=== PATIENT | female | born 1945 | race Two or more races ===

== ENCOUNTER 2020-02-07 10:45 | Inpatient (IN) | payer MEDICARE, MEDICAID ==
[~2020-02-07] VITALS: Ht 160 cm; Wt 77.8 kg
[2020-02-07] VITALS (12 sets, daily range): BP systolic 110–134; BP diastolic 42–65
[2020-02-07 11:42] LABS: White Blood Cell 4.9 10^3/uL (4.4-10.8)
[2020-02-07 11:43] LABS: Basophils # (auto) 0.1 10 ^3/uL (0-0.2); Eosinophils # (auto) 0.1 10 ^3/uL (0-0.8); Lymphocytes # (auto) 0.9 10 ^3/uL (0.4-5.4); Monocytes # (auto) 0.6 10 ^3/uL (0-1.3); Neutrophils # (auto) 3.2 10 ^3/uL (1.6-8.6); Red Blood Cells 2.42 10^6/uL (4.0-5.20)
[2020-02-07 11:45] LABS: Basophils % (auto) 2.1 % (0.0-2.0); Eosinophils % (auto) 2.2 % (0.0-7.0); Hematocrit 16.8 % (36.0-46.0); Lymphocytes % (auto) 18.4 % (10.0-50.0); Mean Corpuscular Hemoglobin 19.5 pg (28.0-32.0); Mean Corpuscular Hgb Conc. 28.1 g/dL (32.0-36.0); Mean Corpuscular Volume 69.5 fL (80.0-100.0); Monocytes % (auto) 11.3 % (0.0-12.0); Nucleated Red Blood Cells % 0.3 %; Platelet Count (auto) 320 10^3/uL (140-450); Red Cell Distribution Width 19.3 % (11.8-14.3)
[2020-02-07 11:52] LABS: Hemoglobin 4.7 g/dL (12.2-16.2)
[2020-02-07 12:05] LABS: INR 1.18 (0.9-1.15); Partial Thromboplastin Time 22.8 sec (23.64-32.05)
[2020-02-07 12:33] LABS: Chloride 106 mmol/L (98-107); Potassium 3.7 mmol/L (3.5-5.1); Sodium 138 mmol/L (136-145)
[2020-02-07 12:44] LABS: Alanine Aminotransferase 14 U/L (13-56); Albumin 3.4 g/dL (3.4-5.0); Alkaline Phosphatase 74 U/L (45-117); Anion Gap 7 (5-15); Aspartate Aminotransferase 14 U/L (15-37); BUN/Creatinine Ratio 28.7; Bilirubin, Total 0.6 mg/dL (0.2-1.0); Blood Urea Nitrogen 27 mg/dL (7-18); Calcium 8.7 mg/dL (8.5-10.1); Carbon Dioxide 25 mmol/L (21-32); GFR African American 75 mL/min; GFR Non-African American 62 mL/min; Glucose 113 mg/dL (74-106); Total Protein 7.1 g/dL (6.4-8.2)
[2020-02-07] MEDS ORDERED: traMADol HCL 50 MG TAB PO PRN (13:00)
[2020-02-07] MEDS ORDERED: ONDANSETRON HCL 4 MG/2 ML VIAL IV PRN (13:00)
[2020-02-07] MEDS ORDERED: MORPHINE SULF INJ 2 MG/ML SYRINGE 1ML IV PRN (13:00)
[2020-02-07] MEDS ORDERED: SODIUM CHLORIDE 0.9% 1,000 ML IV ONE (13:00)
[2020-02-07] MEDS ORDERED: NITROGLYCERIN 0.4 MG SL TAB SL PRN (13:00)
[2020-02-07 13:25] LABS: % Iron Saturation 37.7 % (15-50)
[2020-02-07 13:35] LABS: Folate (Folic Acid) > 24.00 ng/mL (5.38-24)
[2020-02-07 15:23] LABS: Urine Bacteria NONE SEEN /hpf (None Seen); Urine Blood Negative /uL (Negative); Urine WBC 1 /hpf (0 - 5)
[2020-02-07 17:28] LABS: Basophils # (auto) 0.1 10 ^3/uL (0-0.2); Basophils % (auto) 2.4 % (0.0-2.0); Eosinophils # (auto) 0.1 10 ^3/uL (0-0.8); Eosinophils % (auto) 2.4 % (0.0-7.0); Hematocrit 20.8 % (36.0-46.0); Lymphocytes % (auto) 19.6 % (10.0-50.0); Mean Corpuscular Hemoglobin 21.8 pg (28.0-32.0); Mean Corpuscular Hgb Conc. 29.3 g/dL (32.0-36.0); Mean Corpuscular Volume 74.1 fL (80.0-100.0); Monocytes # (auto) 0.6 10 ^3/uL (0-1.3); Monocytes % (auto) 11.8 % (0.0-12.0); Neutrophils # (auto) 3.3 10 ^3/uL (1.6-8.6); Neutrophils % (auto) 63.8 % (37.0-80.0); Nucleated Red Blood Cells % 0.2 %; Platelet Count (auto) 289 10^3/uL (140-450); Red Blood Cells 2.81 10^6/uL (4.0-5.20); White Blood Cell 5.2 10^3/uL (4.4-10.8)
[2020-02-07 17:36] LABS: Red Cell Distribution Width 23.1 % (11.8-14.3)
[2020-02-07 17:41] LABS: Hemoglobin 6.1 g/dL (12.2-16.2)
[2020-02-07] MEDS ORDERED: FUROSEMIDE 20 MG/2 ML VIAL IV ONE (18:15)
[2020-02-07] MEDS: PANTOPRAZOLE 40 MG/10 ML VIAL INJ IV SCH (21:40)
[2020-02-08 02:25] VITALS: BP 128/50
[2020-02-08 05:00] VITALS: BP 113/59
[2020-02-08 06:22] LABS: Basophils # (auto) 0.1 10 ^3/uL (0-0.2); Eosinophils # (auto) 0.1 10 ^3/uL (0-0.8); Hemoglobin 7.4 g/dL (12.2-16.2)
[2020-02-08 06:24] LABS: Basophils % (auto) 1.5 % (0.0-2.0); Eosinophils % (auto) 2.1 % (0.0-7.0); Hematocrit 23.7 % (36.0-46.0); Lymphocytes # (auto) 0.6 10 ^3/uL (0.4-5.4); Lymphocytes % (auto) 14.2 % (10.0-50.0); Mean Corpuscular Hemoglobin 23.8 pg (28.0-32.0); Mean Corpuscular Hgb Conc. 31.3 g/dL (32.0-36.0); Mean Corpuscular Volume 76.1 fL (80.0-100.0); Monocytes # (auto) 0.4 10 ^3/uL (0-1.3); Monocytes % (auto) 8.9 % (0.0-12.0); Neutrophils # (auto) 3.4 10 ^3/uL (1.6-8.6); Neutrophils % (auto) 73.3 % (37.0-80.0); Nucleated Red Blood Cells % 0.5 %; Platelet Count (auto) 263 10^3/uL (140-450); Red Blood Cells 3.11 10^6/uL (4.0-5.20); White Blood Cell 4.6 10^3/uL (4.4-10.8)
[2020-02-08 06:27] LABS: Red Cell Distribution Width 23.9 % (11.8-14.3)
[2020-02-08 06:33] LABS: INR 1.18 (0.9-1.15)
[2020-02-08 06:40] LABS: Albumin 2.9 g/dL (3.4-5.0); BUN/Creatinine Ratio 17.8; Calcium 8.2 mg/dL (8.5-10.1); Potassium 3.9 mmol/L (3.5-5.1)
[2020-02-08 06:43] LABS: Bilirubin, Total 1.7 mg/dL (0.2-1.0); Total Protein 6.2 g/dL (6.4-8.2)
[2020-02-08 09:00] VITALS: BP 109/48
[2020-02-08] MEDS: PANTOPRAZOLE 40 MG/10 ML VIAL INJ IV SCH ×2 (11:09→21:54)
[2020-02-08 13:00] VITALS: BP 91/45
[2020-02-08] MEDS ORDERED: NALOXONE HCL 0.4 MG/ML VIAL ONE (13:11)
[2020-02-08] MEDS ORDERED: FLUMAZENIL 0.1 MG/ML INJ 10ML MDV IV ONE (13:11)
[2020-02-08] MEDS ORDERED: LIDOCAINE VISCOUS 2% 15ML UD ONE (13:11)
[2020-02-08] MEDS ORDERED: SODIUM CHLORIDE LOCK 10 ML ONE (13:11)
[2020-02-08] MEDS ORDERED: diphenhdrAMINE HCL 50 MG/1 ML VL ONE (13:12)
[2020-02-08] MEDS ORDERED: MIDAZOLAM HCL 5 MG/ML-1ML VIAL ONE (13:12)
[2020-02-08] MEDS ORDERED: fentaNYL CITRATE 100 MCG/2 ML VL ONE (13:12)
[2020-02-08 17:00] VITALS: BP 111/56
[2020-02-08] MEDS ORDERED: DEXTROSE (50%) 50ML SYRG IV PRN (17:00)
[2020-02-08] MEDS: ACCU-CHEK COMFORT CURVE STRIP VI SCH (18:00)
[2020-02-08] MEDS: InsuLIN REG 1unit/0.01ml Soln (100units/ml) SC SCH (18:00)
[2020-02-08 22:25] VITALS: BP 101/49
[2020-02-09] VITALS (14 sets, daily range): BP systolic 101–129; BP diastolic 42–93
[2020-02-09] MEDS: ACCU-CHEK COMFORT CURVE STRIP VI SCH ×3 (00:13→12:11)
[2020-02-09] MEDS: InsuLIN REG 1unit/0.01ml Soln (100units/ml) SC SCH ×3 (06:00→12:00)
[2020-02-09 06:18] LABS: Hematocrit 24.9 % (36.0-46.0); Hemoglobin 7.7 g/dL (12.2-16.2)
[2020-02-09 06:38] LABS: Calcium 8.4 mg/dL (8.5-10.1); Magnesium 1.8 mg/dL (1.6-2.6); Potassium 3.7 mmol/L (3.5-5.1)
[2020-02-09 06:44] LABS: BUN/Creatinine Ratio 12.9; Bilirubin, Total 1.2 mg/dL (0.2-1.0)
[2020-02-09] MEDS: PANTOPRAZOLE 40 MG/10 ML VIAL INJ IV SCH ×2 (10:14→21:27)
[2020-02-09] MEDS ORDERED: POTASSIUM CHL 20 Meq TABLET PO ONE (12:30)
[2020-02-09] MEDS ORDERED: MAGNESIUM SULFATE 1GM/100ML 100 ML IV ONE (12:30)
[2020-02-09] MEDS ORDERED: FERR-20 PO (15:48)
[2020-02-09] MEDS ORDERED: DIPH25CA66 PO (15:48)
[2020-02-09] MEDS ORDERED: ASPI-231 PO (15:48)
[2020-02-10 05:09] VITALS: BP 101/40
[2020-02-10 06:47] LABS: Hematocrit 28.2 % (36.0-46.0); Hemoglobin 8.9 g/dL (12.2-16.2)
[2020-02-10 07:01] LABS: Magnesium 1.6 mg/dL (1.6-2.6)
[2020-02-10 07:03] LABS: Bilirubin, Total 2.3 mg/dL (0.2-1.0)
[2020-02-10 08:30] VITALS: BP 121/51
[2020-02-10] MEDS ORDERED: SODIUM CHLORIDE LOCK 10 ML ONE (11:09)
[2020-02-10] MEDS ORDERED: NALOXONE HCL 0.4 MG/ML VIAL ONE (11:09)
[2020-02-10] MEDS ORDERED: FLUMAZENIL 0.1 MG/ML INJ 10ML MDV IV ONE (11:09)
[2020-02-10] MEDS ORDERED: fentaNYL CITRATE 100 MCG/2 ML VL ONE (11:10)
[2020-02-10] MEDS ORDERED: diphenhdrAMINE HCL 50 MG/1 ML VL ONE (11:10)
[2020-02-10] MEDS: PANTOPRAZOLE 40 MG/10 ML VIAL INJ IV SCH ×2 (11:38→22:20)
[2020-02-10 13:00] VITALS: BP 131/56
[2020-02-10] MEDS: MIDAZOLAM HCL 5 MG/ML-1ML VIAL ONE ×3 (14:05→14:11)
[2020-02-10] MEDS ORDERED: LIDOCAINE VISCOUS 2% 15ML UD ONE (15:33)
[2020-02-10 16:59] VITALS: BP 115/65
[2020-02-10] MEDS: SUCRALFATE 1 GM/10 ML ORAL SUSP PO SCH ×2 (17:11→22:20)
[2020-02-10 20:00] VITALS: BP 106/56
[2020-02-10 22:00] VITALS: BP 106/56
[2020-02-11 05:00] VITALS: BP 105/50
[2020-02-11 05:45] LABS: Basophils # (auto) 0.1 10 ^3/uL (0-0.2); Eosinophils # (auto) 0.2 10 ^3/uL (0-0.8); Lymphocytes # (auto) 0.7 10 ^3/uL (0.4-5.4); Nucleated Red Blood Cells % 0.3 %
[2020-02-11 05:47] LABS: Basophils % (auto) 1.3 % (0.0-2.0); Eosinophils % (auto) 3.5 % (0.0-7.0); Hematocrit 28.2 % (36.0-46.0); Hemoglobin 8.7 g/dL (12.2-16.2); Lymphocytes % (auto) 14.4 % (10.0-50.0); Mean Corpuscular Hemoglobin 24.6 pg (28.0-32.0); Mean Corpuscular Hgb Conc. 30.9 g/dL (32.0-36.0); Mean Corpuscular Volume 79.6 fL (80.0-100.0); Monocytes # (auto) 0.5 10 ^3/uL (0-1.3); Monocytes % (auto) 11.2 % (0.0-12.0); Neutrophils # (auto) 3.4 10 ^3/uL (1.6-8.6); Neutrophils % (auto) 69.6 % (37.0-80.0); Platelet Count (auto) 255 10^3/uL (140-450); Red Blood Cells 3.54 10^6/uL (4.0-5.20); White Blood Cell 4.8 10^3/uL (4.4-10.8)
[2020-02-11 05:50] LABS: Red Cell Distribution Width 27.6 % (11.8-14.3)
[2020-02-11 06:07] LABS: BUN/Creatinine Ratio 13.8; Calcium 8.3 mg/dL (8.5-10.1); Potassium 4.1 mmol/L (3.5-5.1)
[2020-02-11] MEDS: SUCRALFATE 1 GM/10 ML ORAL SUSP PO SCH ×4 (06:27→22:00)
[2020-02-11 09:00] VITALS: BP 119/47
[2020-02-11 09:13] LABS: % Iron Saturation 2.9 % (15-50)
[2020-02-11] MEDS: PANTOPRAZOLE 40 MG/10 ML VIAL INJ IV SCH ×2 (10:10→22:00)
[2020-02-11 13:00] VITALS: BP 105/46
[2020-02-11 17:00] VITALS: BP 109/52
[2020-02-11 21:49] VITALS: BP 106/57
[2020-02-11] MEDS ORDERED: IRON SUCROSE COMPLEX 200 MG in SODIUM CHL 0.9% 100 ML IV SCH (23:00)
[2020-02-12 04:54] VITALS: BP 104/61
[2020-02-12] MEDS: SUCRALFATE 1 GM/10 ML ORAL SUSP PO SCH ×4 (05:51→21:52)
[2020-02-12] MEDS: FERROUS SULFATE 325 MG TAB PO SCH ×3 (08:30→17:33)
[2020-02-12 09:00] VITALS: BP 126/50
[2020-02-12] MEDS: PANTOPRAZOLE 40 MG/10 ML VIAL INJ IV SCH ×3 (09:25→21:52)
[2020-02-12] MEDS ORDERED: IRON SUCROSE COMPLEX 200 MG in SODIUM CHL 0.9% 100 ML IV SCH (12:00)
[2020-02-12 13:14] VITALS: BP 129/68
[2020-02-12 17:00] VITALS: BP 94/59
[2020-02-12 22:00] VITALS: BP 103/43
[2020-02-13 05:00] VITALS: BP 95/45
[2020-02-13] MEDS: SUCRALFATE 1 GM/10 ML ORAL SUSP PO SCH ×2 (06:18→12:47)
[2020-02-13 07:15] LABS: Potassium 3.7 mmol/L (3.5-5.1)
[2020-02-13 07:25] LABS: BUN/Creatinine Ratio 18.7; Calcium 8.5 mg/dL (8.5-10.1)
[2020-02-13 08:32] VITALS: BP 101/60
[2020-02-13 09:26] LABS: Folate (Folic Acid) 18.98 ng/mL (5.38-24)
[2020-02-13] MEDS: PANTOPRAZOLE 40 MG/10 ML VIAL INJ IV SCH (09:44)
[2020-02-13] MEDS: FERROUS SULFATE 325 MG TAB PO SCH ×2 (09:46→12:00)
[2020-02-13] MEDS ORDERED: PANT40TA2 PO (12:50)
[2020-02-13] MEDS ORDERED: FERR-7 PO (12:51)
[2020-02-13] MEDS ORDERED: SUCR1TAB38 OR (12:52)
[2020-02-13 13:58] VITALS: BP 107/60
[2020-02-13] MEDS ORDERED: FERROUS SULFATE 325 MG TAB PO SCH (18:00)
== END 2020-02-13 14:56 | disposition home or self-care (01) | DRG 241 ==
LOC: ER 10:45 → TELE 10:46 → TELE-WESTW 17:05
PROVIDERS: ADMIT Nurse Practitioner Acute Care; ATTEND Internal Medicine Nephrology
PROC: 30233N1 Transfusion of Nonautologous Red Blood Cells into Peripheral Vein, Percutaneous Approach (ICD-10-PCS; 2020-02-07)
PROC: 0DB88ZX Excision of Small Intestine, Via Natural or Artificial Opening Endoscopic, Diagnostic (ICD-10-PCS; 2020-02-10)
PROC: 0DB68ZX Excision of Stomach, Via Natural or Artificial Opening Endoscopic, Diagnostic (ICD-10-PCS; principal; 2020-02-10 13:59)
DX: K25.4 Chronic or unspecified gastric ulcer with hemorrhage (principal); E11.22 Type 2 diabetes mellitus with diabetic chronic kidney disease; N18.3 Chronic kidney disease, stage 3 (moderate); D50.9 Iron deficiency anemia, unspecified; E66.9 Obesity, unspecified; F41.9 Anxiety disorder, unspecified; I12.9 Hypertensive chronic kidney disease with stage 1 through stage 4 chronic kidney disease, or unspecified chronic kidney disease; K44.9 Diaphragmatic hernia without obstruction or gangrene; Z79.82 Long term (current) use of aspirin; Z86.73 Personal history of transient ischemic attack (TIA), and cerebral infarction without residual deficits; Z79.899 Other long term (current) drug therapy; Z68.30 Body mass index [BMI] 30.0-30.9, adult; Z87.11 Personal history of peptic ulcer disease; Z79.84 Long term (current) use of oral hypoglycemic drugs; Z90.49 Acquired absence of other specified parts of digestive tract; R00.1 Bradycardia, unspecified
CPT/HCPCS: 36415; 43239; 71045; 76700; 80048; 80053; 80061; 81001; 82247; 82270; 82378; 82607; 82668; 82728; 82746; 82962; 83010; 83036; 83540; 83550; 83615; 83735; 84132; 84439; 84443; 84484; 85014; 85018; 85025; 85045; 85610; 85652; 85730; 86141; 86225; 86235; 86850; 86880; 86885; 86900; 86901; 86920; 93306; 97116; 97163; 97530; C9113; G0378; J1756; J2250